=== PATIENT | female | born 1985 | race Caucasian/White ===

== ENCOUNTER 2020-12-04 23:28 | Emergency (ER) | payer MEDICAID, SELFPAY ==
[2020-12-05 00:29] VITALS: BP 112/74; PULSE 76; RESP 16; TEMP 36.5; O2SAT 98; BMI 23.1
[2020-12-05 00:42] LABS: COVID-19 Test Positive (Negative)
--- NOTE | 2020-12-05 00:48 | ED_ITS ---
HPI - URI/Sore Throat General Chief Complaint: Upper Respiratory Symptoms Stated Complaint: SoB Time Seen by Provider: 12/05/20 00:17 Source: patient Mode of arrival: ambulatory History of Present Illness HPI Narrative: 35-year-old female without significant past medical history to include no history of asthma or COPD and quit smoking 5 years ago presents with increasing shortness of breath, No recent history of long car rides or plane t rips, hemoptysis, estrogen supplementation, personal history of cancer, recent surgery or bed bound state, calf pain or calf swelling. She states she has not been vaccinated for COVID-19 and reports a positive exposure approximately 2 weeks ago. She states she has had loss of taste and smell with very mild dry cough, mild diarrhea. Related Data Allergies Allergy/AdvReac Type Severity Reaction Status Date / Time plantain Allergy Mild ANAPHYLAXIS Unverified 11/20/19 17:19 banana [BANANA] Allergy Unknown ANAPHYLAXIS Unverified 11/20/19 17:19 Review of Systems Review of Systems: Pertinent positives and negatives as stated in HPI 10 point review of systems otherwise negative. [facility] Past Medical History Source: nursing notes reviewed Social History Social History Advance Directives: No Advance Directives Information Provided: Yes Patient : No Physical Exam Vital Signs: Vital Signs: Last Vital Signs Temp 97.7 F 12/05/20 00:29 Pulse 76 12/05/20 00:29 Resp 16 12/05/20 00:29 BP 112/74 12/05/20 00:29 Pulse Ox 98 12/05/20 00:29 Body Mass Index 23.1 VITAL SIGNS: Reviewed. GENERAL: Well developed, well nourished, in no acute distress. HEAD: Normocephalic/atraumatic EYES: PERRLA, EOMI OROPHARYNX: no oral lesions noted, posterior pharynx clear LUNGS: Normal breath sounds. No adventitious sounds or accessory muscle use, no tachypnea SpO2<98> CARDIOVASCULAR: Regular rate and rhythm without noted murmurs ABDOMEN: Soft, non-tender, non-distended with bowel sounds. NEUROLOGIC: Alert and oriented x 4. Course Course Course Narrative: [age] year female with history and clinical presentation most consistent with COVID-19 infection and on obtaining rapid testing it is positive. Patient is not febrile, hypoxic, tachypneic and is otherwise hemodynamically stable. All results and findings were discussed with her at bedside and she was discharged home in stable condition with strict instructions to self quarantine follow all state and Federal guidelines for COVID-19 positivity. MDM - URI/Sore Throat Lab Data Labs: Lab Results 12/05/20 Range/Units 00:30 COVID-19 (MAUREEN) Positive A (Negative) COVID-19 Clin Com See Note Discharge Plan Discharge Clinical Impression: Lab test positive for detection of COVID-19 virus, Viral syndrome Patient Disposition: Home, Self-Care Instructions: COVID-19 (Coronavirus Disease 2019) (ED), Viral Syndrome (ED) Additional Instructions: 1. Recommend [id number] Tylenol/ibuprofen as needed for body aches, headache, temperatures greater than 100.4. 2. Self quarantine for the next 14 days and follow all Federal and State guidelines for being COVID-19 positive. 3. Follow-up with your primary care provider in the next 2-3 days via zoom appointment. Return to the ER for acute worsening of symptoms. Referrals: [facility] [Primary Care Provider] - 2 days (COVID-19 positive 12/05) Print Language: Uzbek
[2020-12-05] MEDS: Acetaminophen 325 MG TABLET 975 MG PO (01:14)
[2020-12-05] MEDS: Ibuprofen 400 MG TABLET PO (01:14)
== END 2020-12-05 01:19 | disposition home or self-care (01) ==
PROVIDERS: Emergency Provider Student in an Organized Health Care Education/Training Program
DX: U07.1 COVID-19 (principal); R06.02 Shortness of breath; Z87.891 Personal history of nicotine dependence
CPT/HCPCS: 36415; 87635; 99283

== ENCOUNTER 2024-08-27 14:01 | Emergency (ER) | payer SELFPAY ==
[2024-08-27 15:03] VITALS: BP 110/68; PULSE 64; RESP 16; TEMP 37; O2SAT 98; BMI 23.2
--- NOTE | 2024-08-27 15:03 | ED_ITS ---
HPI - General Adult General Chief complaint: Extremity Injury, Upper Stated complaint: left thumb injury Time Seen by Provider: 08/27/24 16:05 Source: patient Mode of arrival: ambulatory Limitations: no limitations History of Present Illness ED Provider: HPI narrative: Slammed her left thumb into a car door yesterday presenting with pain and hematoma formation of her left thumb Related Data Allergies Allergy/AdvReac Type Severity Reaction Status Date / Time plantain Allergy Mild ANAPHYLAXIS Verified 08/27/24 15:05 banana (BANANA) Allergy Unknown ANAPHYLAXIS Verified 08/27/24 15:05 Review of Systems Constitutional: Constitutional: Reports as per [facility] Social History Social History Advance Directives: No Advance Directives Information Provided: Yes Physical Exam ED Vital Signs: Vital Signs - 24 hr 08/27/24 15:03 08/27/24 15:30 Temperature 98.6 F 98.1 F Pulse Rate 64 98 Respiratory Rate 16 16 Blood Pressure 110/68 110/65 Pulse Oximetry 98 100 Oxygen Delivery Method Room Air Room Air BMI result Body Mass Index 23.2 Const Other: Nail intact on the left hand/thumb, there is subungual hematoma distal radial ulnar pulses +2, full range of motion of the thumb, and flexion-extension intact Course Course Course Narrative: This is a rapid medical exam performed by Kari Garnica NP: Additional HPI, ROS, PE not included below will be deferred to primary provider. Patient is a 39-year-old right hand dominant female presenting with crush injury to distal tip of left thumb with subungual hematoma. Denies any bleeding after injury. Accidentally slammed in car door around 2-3 pm. Plan: x-ray Procedures Nail Trephination Location (finger): left Sterile prep: chlorhexidine Method of drainage: nail cautery Procedure successful: Yes Patient tolerated procedure: No Complications Medical Decision Making Medical Decision Making [facility] Narrative: Verbal consent was obtained and trephination of subungual hematoma was performed, no other injuries noted, no reason for further imaging such as x-rays Discharge Plan Discharge Clinical Impression: Subungual hematoma of digit of hand Qualifiers: Encounter type: initial encounter Qualified Code(s): S60.10XA - Contusion of unspecified finger with damage to nail, initial encounter Patient Disposition: Home, Self-Care Additional Instructions: Evaluated with formation of hematoma underneath the left thumbnail, there was the procedure was performed to release the pressure and we released the trip blood that was causing the discomfort, at home warm water with some soap, continue soaking it and slowly pressing down just to get more blood out, thereafter can just a play a Band-Aid, you may lose the nail can not really prevent that, and if you have any pain you can take Tylenol 975 mg every 6 hours needed, any other issues concerns come back to the ER Print Language: Indonesian
[2024-08-27 15:30] VITALS: BP 110/65; PULSE 98; RESP 16; TEMP 36.7; O2SAT 100
[2024-08-27 16:36] VITALS: BP 111/72; PULSE 60; RESP 16; TEMP 36.9; O2SAT 99
--- OUTSIDE RECORDS SUMMARY | 2024-08-27 18:23 | XMS_ITS | Clinical Summary ---
Author Organization [facility] Address [address] [place] [address] Care Team Providers Care Geological Science Teacher Name Role Phone Rosario Han MD Primary Care Provider [phone] Surgical History Surgery Date Site/Laterality Comments SALPINGOOPHORECTOMY 2008 PROCEDURE: ID LAPAROSCOPY W/RMVL ADNEXAL STRUCTURES; COMMENT: right sided, d/t ectopic Family History Medical History Relation Name Comments Breast cancer Maternal Grandmother Colon cancer Neg Hx Ovarian cancer Neg Hx Relation Name Status Comments Father Alive Maternal Grandmother Mother Alive Sister Alive Social History Tobacco Use Types Packs/Day Years Used Date Smoking Tobacco: Some Days Cigarettes Smokeless Tobacco: Never Alcohol Use Standard Drinks/Week Comments Yes 0 (1 standard drink = 0.6 oz pur e alcohol) Comments Unknown Sex and Gender Information Value Date Recorded Sex Assigned at Not on file Legal Sex Female 5:37 AM EST Gender Identity Not on file Sexual Orientation Not on file Obstetrics History Plan of Treatment Health Maintenance Due Date Last Done Comments Hepatitis B Vaccines (1 of 3 - 19+ 3-dose series) 2005 Cervical Cancer Screening: P ap Smear 2007 HPV Vaccines (3 - 3-dose series) 09/12/2011 05/15/2011, 03/14/2011 DTaP,Tdap,and Td Vaccines (2 - Td or Tdap) 04/18/2021 04/18/2011 COVID-19 Vaccine (2023-2 5 season) 2023 Influenza Vaccine (Season Ended) 2024 HIB Vaccines Aged Out No longer eligi ble based on patient's age to complete this topic Hepatitis A Vaccines Aged Out No long er eligible based on patient's age to complete this topic IPV Vaccines Aged Out No longer eligi ble based on patient's age to complete this topic MMR Vaccines Aged Out No longer eligi ble based on patient's age to complete this topic Meningococcal ACWY Vaccine Aged Out N o longer eligible based on patient's age to complete this topic Meningococcal B Vaccine Aged Out No l onger eligible based on patient's age to complete this topic Pneumococcal Vaccine: Pediatrics (0 to 5 Years) and At-Risk Patients (6 to 64 Years) Aged Out No longer eligible b ased on patient's age to complete this topic RSV Immunization Patients Under 20 months Aged Out No longer eligible b ased on patient's age to complete this topic Varicella Vaccines Aged Out No longer eligible based on patient's age to complete this topic Care Teams Geological Science Teacher Relationship Specialty Start Date End Date Rosario Han MD [address] [place] [id number] PCP - General 05/02/17
== END 2024-08-27 16:36 | disposition home or self-care (01) ==
PROVIDERS: Emergency Provider Emergency Medicine
DX: S60.112A Contusion of left thumb with damage to nail, initial encounter (principal); M79.642 Pain in left hand; Y29.XXXA Contact with blunt object, undetermined intent, initial encounter; Y93.9 Activity, unspecified; Y92.9 Unspecified place or not applicable; Y99.8 Other external cause status
CPT/HCPCS: 10140; 11750; 99282; 99284